=== PATIENT | female | born 1975 | race Caucasian/White ===

== ENCOUNTER 2019-10-23 09:17 | Outpatient (CLI) | payer BC, SELFPAY ==
--- NOTE | ~2019-10-23 | MM_ITS ---
EXAMINATION: MM screening abe BI w jatinder HISTORY: Screening mammogram TECHNIQUE: Craniocaudal and mediolateral oblique 3-D tomosynthesis images were obtained and synthetic 2-D images were generated. CAD analysis was submitted and interpreted. COMPARISON: Comparison to multiple prior studies sequentially, with oldest reviewed study dated 12/2016. BREAST PARENCHYMAL COMPOSITION: There are scattered areas of fibroglandular density. FINDINGS: There is no evidence of suspicious mass, calcification, or architectural distortion to sugg est malignancy in either breast. There has been no suspicious interval change. IMPRESSION: 1. No mammographic evidence of malignancy. 2. Recommend routine screening mammography in one year. BI-RADS Category 1: Negative Reviewed, dictated and finalized at location A.
== END 2019-10-23 09:18 | disposition home or self-care (01) ==
LOC: ANHIMG 09:19
PROVIDERS: PCP Internal Medicine; Visit Provider Obstetrics & Gynecology
DX: Z12.31 Encounter for screening mammogram for malignant neoplasm of breast (principal)
CPT/HCPCS: 77063; 77067

== ENCOUNTER → 2020-01-29 09:43 | Outpatient (CLI) | payer BC, SELFPAY ==
--- NOTE | ~2020-01-29 | CT_ITS ---
EXAMINATION: CT soft tissue neck w con DATE: 01/29/2020 10:10 INDICATION: Left neck mass and tenderness. Other specified postprocedural states. TECHNIQUE: Computed tomography (CT) of the neck was performed with 75 mL Omnipaque-350 intravenous co ntrast. Automated exposure control and iterative reconstruction technique were employed. The dose-eliza gth product was 386.82 mGy-cm. COMPARISON: None FINDINGS: There are no pathologically enlarged lymph nodes. There is mild mucosal thickening in the e thmoid sinuses. The mastoid air cells are normal. There is a scar in left neck anteriorly. There is m ild cervical spondylosis. There are disc replacements at C4-C5 and C5-C6. IMPRESSION: 1. No abnormal mass or lymphadenopathy. Reviewed, dictated and finalized at location B.
== END ==
PROVIDERS: PCP Internal Medicine; Visit Provider Internal Medicine
DX: Z98.890 Other specified postprocedural states (principal); R22.1 Localized swelling, mass and lump, neck
CPT/HCPCS: 70491; Q9967

== ENCOUNTER 2020-11-09 15:39 | Outpatient (CLI) | payer BC, SELFPAY ==
--- NOTE | ~2020-11-09 | MM_ITS ---
EXAMINATION: MM screening abe BI w jatinder HISTORY: Screening mammogram TECHNIQUE: Craniocaudal and mediolateral oblique 3-D tomosynthesis images were obtained and synthetic 2-D images were generated. CAD analysis was submitted and interpreted. COMPARISON: 10/23/2019, 10/04/2018 bilateral digital screening mammogram examinations 01/05/2018 and 07/07/2017 diagnostic right digital mammogram and limited right breast ultrasound 06/29/2017 and 06/13/2015 bilateral digital screening mammogram examinations BREAST PARENCHYMAL COMPOSITION: There are scattered areas of fibroglandular density. FINDINGS: There is a 1 cm irregular spiculated mass high in the upper outer posterior right breast. Bilateral mammographic asymmetries are noted. Bilateral diagnostic mammography with right rotated lateral craniocaudal and additional bilateral com pression views are recommended for more complete visualization/evaluation. Right breast ultrasound ex amination is recommended, with left breast ultrasound examination if required. IMPRESSION: 1. 1 cm irregular spiculated mass in posterior upper outer right breast 2. Bilateral mammographic asymmetries; 3. Lateral diagnostic mammography and right breast ultrasound examination are recommended, with left breast ultrasound examination if required. BI-RADS Category 0: Incomplete: Needs additional imaging evaluation. Reviewed, dictated and finalized at location A. IMPRESSION: 1. 1 cm irregular spiculated mass in posterior upper outer right breast 2. Bilateral mammographic asymmetries; 3. Lateral diagnostic mammography and right breast ultrasound examination are r ecommended, with left breast ultrasound examination if required. BI-RADS Category 0: Incomplete: Needs additional imaging evaluation.
== END 2020-11-09 15:40 | disposition home or self-care (01) ==
LOC: ANHIMG 15:44
PROVIDERS: PCP Internal Medicine; Visit Provider Obstetrics & Gynecology
DX: Z12.31 Encounter for screening mammogram for malignant neoplasm of breast (principal); R92.8 Other abnormal and inconclusive findings on diagnostic imaging of breast
CPT/HCPCS: 77063; 77067

== ENCOUNTER 2020-12-08 12:51 | Outpatient (CLI) | payer BC, SELFPAY ==
--- NOTE | ~2020-12-08 | MMUS_ITS ---
EXAMINATION: MM diagnostic mammo BI, US breast BI complete HISTORY: 1 cm irregular spicular mass in posterior upper outer right breast and bilateral mammographi c asymmetries reported on 11/09/2020 screening mammogram examinations TECHNIQUE: Additional 3-D tomosynthesis images of both breasts were performed and synthetic 2-D image s were generated. CAD analysis was submitted and interpreted. High resolution bilateral complete jan st ultrasound was performed. COMPARISON: 11/09/2020 bilateral digital screening mammogram FINDINGS: MAMMOGRAPHIC FINDINGS: Approximately 8 mm spiculated mass is noted posteriorly in the upper outer quadrant of the right jan st. Scattered bilateral mammographic asymmetry is noted without other definite mass. No malignant calcifi cation, skin thickening or retraction is detected. ULTRASOUND: Right breast: 10:00 8 cm from nipple: There is a poorly defined irregular antiparallel approximately 10 mm hypoechoic mass with posterior shadowing, highly suggestive of malignancy No other suspicious mass or shadowing of the right breast is detected. Left breast: No suspicious mass or shadowing is detected. IMPRESSION: 1. Approximately 10 x 13 mm spiculated mass in the posterior upper outer right breast and axillary ta il area, highly suggestive of malignancy 2. Appropriate action should be taken. Consider ultrasound-guided biopsy. BI-RADS category 5, highly suggestive of malignancy. Dr. Degroot telephoned the report and ultrasound-guided biopsy recommendation on 12/08/[address] Thurman's [employer]'s voicemail. Reviewed, dictated and finalized at location A. IMPRESSION: 1. Approximately 10 x 13 mm spiculated mass in the posterior upper outer right breast and axillary tail area, highly suggestive of malignancy 2. Appropriate action should be taken. Consider ultrasound-guided biopsy. BI-RADS category 5, highly suggestive of malignancy. Dr. Degroot telephoned the report and ultrasound-guided biopsy recommendation on at [address] Thurman's [employer]'s voicemail.
== END 2020-12-08 12:52 | disposition home or self-care (01) ==
PROVIDERS: PCP Internal Medicine; Visit Provider Obstetrics & Gynecology
DX: N63.11 Unspecified lump in the right breast, upper outer quadrant (principal)
CPT/HCPCS: 76641; 77066

== ENCOUNTER → 2021-04-26 08:52 | Outpatient (CLI) | payer BC, SELFPAY ==
--- NOTE | ~2021-04-26 | XR_ITS ---
EXAMINATION: XR knee RT 3V DATE: 04/26/2021 09:12 INDICATION: Right knee pain TECHNIQUE: Three views of the right knee were obtained. COMPARISON: None. FINDINGS: There is a healed, age-indeterminate fracture of the proximal fibula. No acute fracture is identified. Joint spaces are normal with no erosions. No joint effusion/synovitis. Soft tissues are unremarkable. IMPRESSION: 1. No acute osseous abnormality. 2. Old fracture of the right fibula. Reviewed, dictated and finalized at location B. [employer]
== END ==
PROVIDERS: PCP Internal Medicine; Visit Provider Internal Medicine
DX: M25.561 Pain in right knee (principal); Z87.81 Personal history of (healed) traumatic fracture
CPT/HCPCS: 73562

== ENCOUNTER → 2021-07-07 09:15 | Outpatient (CLI) | payer BC, SELFPAY ==
--- NOTE | ~2021-07-07 | MR_ITS ---
EXAMINATION: MR knee RT wo con DATE: 07/07/2021 10:21 INDICATION: Fracture of upper and lower and the right knee presenting with 9 months of anterior right knee pain. TECHNIQUE: Magnetic resonance imaging (MRI) of the right knee was performed without intravenous contr ast. Sequences included coronal PD-weighted FSE, coronal PD-weighted FS FSE, sagittal T2-weighted FS E, sagittal PD-weighted FS FSE and axial PD weighted fat saturated FSE. Flex coil was utilized to inc reased [id number] over the region of the fibular fracture. The larger field of view mildly limits evaluation of the meniscus and cartilage relative to a standard small [id number]. COMPARISON: Radiographs dated 04/26/2021 FINDINGS: Medial compartment: Medial meniscus is normal. Articular cartilage is normal. Lateral compartment: Lateral meniscus is normal. Articular cartilage is normal. Patellofemoral compartment: Articular cartilage is normal. Ligaments and tendons: Anterior and posterior cruciate ligaments are normal. The fibular collateral ligament complex is norm al. There is mild thickening of the proximal medial collateral ligament without surrounding edema to suggest acute injury consistent with scarring related to chronic sprain. The extensor mechanism is no rmal. The visualized medial and lateral hamstring tendons as well as the iliotibial band are normal. Fluid: Physiologic amount of fluid in the joint space. No loose osteochondral bodies identified. Osseous/other: Old healed fracture deformity with prominent sulci surrounding callus which is remodeled into the cor michael at the proximal fibular diaphysis. No other fractures identified. Normal bone marrow signal throu ghout with no reactive edema or pathologic marrow replacing process. IMPRESSION: 1. Old healed proximal fibular diaphyseal fracture in essentially anatomic alignment. Otherwise unrem arkable right knee MRI. Reviewed, dictated and finalized at location A. [employer]OR OF [employer]ET[employer] IMPRESSION: 1. Old healed proximal fibular diaphyseal fracture in essentially anatomic alig nment. Otherwise unremarkable right knee MRI.
== END ==
PROVIDERS: PCP Internal Medicine; Visit Provider Orthopaedic Surgery
DX: S82.831A Other fracture of upper and lower end of right fibula, initial encounter for closed fracture (principal)
CPT/HCPCS: 73721

== ENCOUNTER → 2021-08-31 14:14 | Outpatient (CLI) | payer BC, SELFPAY ==
--- NOTE | ~2021-08-31 | US_ITS ---
EXAMINATION: US pelvic complete w TV DATE: 08/31/2021 14:45 INDICATION: Abnormal uterine bleeding. Comparison:No prior studies for comparison. TECHNIQUE: Multiple transabdominal and endovaginal sonographic images of the pelvis performed. FINDINGS: The uterus measures 11 x 4.2 x 5.4 cm. There is a uterine fibroid anteriorly measuring 4.7 x 4.2 x 3.4 cm. The endometrial complex measures 7 mm. The right ovary measures 1.7 x 0.9 x 1.7 cm and the left ovary measures 1.7 x 1.5 x 3 cm. There are small follicles in each ovary. Normal doppler signal in both ovaries. There is no free fluid in the pelvis. There are no abnormal masses seen on either side. IMPRESSION: 1. Enlarged uterus containing 4.7 cm fibroid anteriorly. Reviewed, dictated and finalized at location B.
== END ==
PROVIDERS: PCP Internal Medicine; Visit Provider Obstetrics & Gynecology
DX: N93.9 Abnormal uterine and vaginal bleeding, unspecified (principal); D25.9 Leiomyoma of uterus, unspecified
CPT/HCPCS: 76830; 76856

== ENCOUNTER → 2021-12-14 10:56 | Outpatient (CLI) | payer BC, SELFPAY ==
--- NOTE | ~2021-12-14 | DEXA_ITS ---
Bone Density Report Name: JARETT JAMA Age: 46 Sex: Female Ethnicity: White Date of : 1975 Indication: inflammatory bowel disease; prior fracture; cancer; Referring Provider: Álvaro Mcdonough Study: Bone densitometry was performed. Exam Date: December 14, 2021 Accession number: [id number] Bone Density: Region BMD T-score Z-score Classification AP Spine (L1-L4) 0.850 -1.8 -1.2 Osteopenia Femoral Neck (Left) 0.810 -0.3 0.2 Normal Total Hip (Left) 0.936 0.0 0.3 Normal Femoral Neck (Right) 0.767 -0.7 -0.2 Normal Total Hip (Right) 0.903 -0.3 0.1 Normal Total Hip Mean 0.920 -0.2 0.2 Normal World Health Organization criteria for BMD impression classify patients as: Normal (T-score at or above -1.0), Osteopenia (T-score between -1.0 and -2.5), or Osteoporosis (T-score at or below -2.5). 10-year Fracture Risk: FRAX not reported because: Premenopausal woman Clinical Information Provided by Patient: Has had a low trauma fracture Has the following medical conditions: Cancer, Inflammatory bowel diseases Patient maximum height was 63.1 Drinks caffeinated beverages Onset of menses at age 11 Premenopausal Number of children 2 Missed period for more than 6 months in a row Impression: The patient's bone mass is within expected range for age, gender and ethnicity. The patient has risk factors, including: previous fracture. Discussion: BONE DENSITY IS WITHIN EXPECTED LIMITS FOR AGE, SEX AND RACE. Bone density is within expected limits for age, sex and race at all sites measured. The patient should follow a healthful lifestyle (good nutrition with adequate calcium and vitamin D, and appropriate weight-bearing exercise). Follow-Up: Consider repeating this study in 2 to 3 years to reassess this patient's status, or sooner if there is some new clinical indication. Reported by: JAIME on 12/14/2021 11:31:00 AM. Reviewed, dictated and finalized at location ATina MARION
== END ==
PROVIDERS: PCP Internal Medicine; Visit Provider Internal Medicine Hematology & Oncology
DX: C50.411 Malignant neoplasm of upper-outer quadrant of right female breast (principal); Z17.0 Estrogen receptor positive status [ER+]; M85.88 Other specified disorders of bone density and structure, other site
CPT/HCPCS: 77080

== ENCOUNTER → 2022-04-12 13:46 | Outpatient (CLI) | payer BC, SELFPAY ==
--- NOTE | ~2022-04-12 | US_ITS ---
EXAMINATION: US pelvic complete w TV DATE: 04/12/2022 14:13 INDICATION: Follow-up fibroid. Comparison:Ultrasound dated 08/31/2021 TECHNIQUE: Multiple transabdominal and endovaginal sonographic images of the pelvis performed. FINDINGS: The uterus measures 9.2 x 3.4 x 4.4 cm. The endometrial complex measures 5 mm. There is a f ibroid anterior aspect of the uterus measuring 3.2 x 2.9 x 2.6 cm The right ovary is not visualized. The left ovary is unremarkable measuring 2.1 x 1.4 x 2.1 cm. There is no free fluid in the pelvis. There are no abnormal masses seen on either side. IMPRESSION: 1. Uterine fibroid measuring 3.2 cm. Reviewed, dictated and finalized at location B.
== END ==
PROVIDERS: PCP Internal Medicine; Visit Provider Obstetrics & Gynecology
DX: D25.9 Leiomyoma of uterus, unspecified (principal)
CPT/HCPCS: 76830; 76856

== ENCOUNTER 2023-04-06 10:09 | Outpatient (CLI) | payer BC, SELFPAY ==
[2023-04-06 10:32] LABS: Basophils Percent Auto 0.9 % (0.2-1.2); Eosinophils Absolute Auto 0.1 K/mm3 (0-0.3); Eosinophils Percent Auto 2.8 % (0-4.4); Hemoglobin 14.4 g/dL (12.0-15.0); Immature Granulocyte Absolute 0.01 K/mm3 (0.00-0.031); Immature Granulocyte Percent A 0.2 % (0-0.5); Lymphocytes Absolute Auto 1.17 K/mm3 (0.9-3.2); Lymphocytes Percent Auto 26.8 % (18.3-44.2); Mean Corpuscular HGB Conc 33.5 g/dl (32-36); Mean Corpuscular Hemoglobin 28.6 pg (26-34); Mean Corpuscular Volume 85.5 fl (80-100); Mean Platelet Volume 9.5 fl (7.4-10.4); Monocytes Absolute Auto 0.5 K/mm3 (0.1-0.6); Monocytes Percent Auto 11.7 % (2.6-8.5); Neutrophils Absolute Auto 2.5 K/mm3 (1.3-6.7); Neutrophils Percent Auto 57.6 % (45.5-73.1); Platelet Count Result 249 k/mm3 (150-375); Red Blood Count 5.03 M/mm3 (4.2-5.4); Red Cell Distribution Width 12.5 % (11.5-14.5); White Blood Count 4.4 K/mm3 (4.5-10.0)
[2023-04-06 12:19] LABS: Alanine Aminotransferase 48 U/L (6-35); Albumin Level 4.4 g/dL (3.5-5.1); Alkaline Phosphatase 105 U/L (38-126); Anion Gap 6 mmol/L (8-16); Aspartate Amino Transferase 62 U/L (14-36); Bilirubin,Total 0.6 mg/dL (0.2-1.3); Blood Urea Nitrogen 12 mg/dL (7-17); Calcium 9.3 mg/dL (8.4-10.2); Carbon Dioxide 29 mmol/L (22-30); Chloride 104 mmol/L (98-107); Estimated Glomerular Filt Rate > 60; Glucose 96 mg/dL (65-110); Potassium 4.4 mmol/L (3.4-5.0); Sodium 139 mmol/L (137-145)
[2023-04-10 13:09] LABS: CA 15-3 13 U/mL (<32)
== END 2023-04-06 10:10 | disposition home or self-care (01) ==
PROVIDERS: PCP Internal Medicine; Visit Provider Internal Medicine Hematology & Oncology
DX: C50.411 Malignant neoplasm of upper-outer quadrant of right female breast (principal); Z17.0 Estrogen receptor positive status [ER+]
CPT/HCPCS: 36415; 80053; 85025; 86300

== ENCOUNTER → 2023-05-17 11:45 | Outpatient (CLI) | payer BC, SELFPAY ==
--- NOTE | ~2023-05-17 | MR_ITS ---
EXAMINATION: MR hip RT w con DATE: 05/17/2023 13:22 INDICATION: Right hip pain. TECHNIQUE: Magnetic resonance imaging (MRI) of the right hip was performed without intravenous contra st after intra-articular injection of contrast (MR arthrogram). COMPARISON: CT abdomen and pelvis 09/04/2017 FINDINGS: Bones/cartilage: Bone alignment is normal. The femoral head/neck morphologies are normal. Small [id number] images o f right hip demonstrate femoral cartilage. Labrum: The right acetabular labrum is normal. Fluid: The right hip joint is well distended by contrast. There is no left hip joint effusion. There is no s ignificant trochanteric bursitis. Soft tissues: There are 2 fibroids in the uterus measuring up to 2.5 cm. The hamstring origins and iliopsoas tendon s are normal. The gluteus minimus and gluteus medius tendons are normal. IMPRESSION: 1. Normal right hip. Reviewed, dictated and finalized at location A. 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 Normal right hip.
--- NOTE | ~2023-05-17 | XR_ITS ---
EXAMINATION: XR fl inj hip RT for MR/CT DATE: 05/17/2023 12:51 INDICATION: Right hip pain. TECHNIQUE: A time-out was performed to verify the patient's name, date of , and procedure to b e performed. The procedure including the risks, benefits, and alternatives was discussed with the pat ient. Risks discussed included bleeding and infection. The patient understood the risks and agreed to proceed. The skin overlying the right hip joint was prepped and draped in usual sterile fashion. An esthetic was administered with 1% lidocaine subcutaneously. A 22 G needle was advanced under fluoros copic guidance into the joint. Subsequently, injectate consisting of 8 mL of 1:200 Multihance, 1:4 1 % lidocaine, and 1:4 Omnipaque 240 was instilled. The needle was removed and the entry site was ha jossue and dressed. There were no immediate complications. Fluoroscopy exposure time was 0.1 minutes. T he total number of images was 2. FINDINGS: Real-time fluoroscopy demonstrates the needle and contrast in the right hip joint. IMPRESSION: 1. Successful right hip joint injection of contrast for subsequent MR arthrography. Reviewed, dictated and finalized at location A. DE WIREMAN IMPRESSION: 1. Successful right hip joint injection of contrast for subsequent MR arthrogra phy.
== END ==
PROVIDERS: PCP Internal Medicine
DX: M25.551 Pain in right hip (principal)
CPT/HCPCS: 20610; 73722; 77002; A9577; Q9967

== ENCOUNTER 2023-06-23 11:15 | Outpatient (CLI) | payer BC, SELFPAY ==
--- NOTE | ~2023-06-23 | US_ITS ---
EXAMINATION: US pelvic complete w TV DATE: 06/23/2023 11:44 INDICATION: Postmenopausal bleeding. TECHNIQUE: Multiple transabdominal and transvaginal sonographic images of the pelvis were obtained. COMPARISON: Ultrasound pelvis 04/12/2022 FINDINGS: TRANSABDOMINAL ULTRASOUND: The uterus measures 8.2 x 3.8 x 4.5 cm. There is a 2.6 cm subserosal fibroid on the left. The endomet rial complex measures 3 mm in thickness. There is no free fluid in the pelvis. TRANSVAGINAL ULTRASOUND: The ovaries are not visualized IMPRESSION: 1. Normal endometrial complex. 2. Uterine fibroid. Reviewed, dictated and finalized at location E. 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
== END 2023-06-23 11:16 ==
LOC: MICIMG 11:16
PROVIDERS: PCP Obstetrics & Gynecology; Visit Provider Obstetrics & Gynecology
DX: D25.2 Subserosal leiomyoma of uterus (principal); N95.0 Postmenopausal bleeding
CPT/HCPCS: 76830; 76856